=== PATIENT | female | born 1945 ===

== ENCOUNTER 2024-05-02 12:01 | Emergency (ER) | payer MEDICARE, SELFPAY ==
[2024-05-02 12:05] VITALS: BP 170/87
[2024-05-02 13:15] LABS: Urine Albumin 1+ (Neg - Trace); Urine Bilirubin Negative (Negative); Urine Character Very Cloudy (Clear); Urine Color Yellow; Urine Glucose Negative (Negative); Urine Ketone Negative (Negative); Urine Leukocyte 2+ (Negative); Urine Nitrite Negative (Negative); Urine Occult Blood 4+ (Negative); Urine Specific Gravity 1.015 (<1.030); Urine Urobilinogen Negative (Neg - 1+)
[2024-05-02 14:00] VITALS: BP 159/75
[2024-05-02 14:07] LABS: Urine Bacteria Many (Negative); Urine White Cell 50-60 /HPF (0-5)
--- NOTE | 2024-05-02 16:21 | ED.GENMED ---
Addendum entered and electronically signed by Arun Adrian DO 05/02/24 16:27:
Please disregard this note. This note is not correct and involves information from a different patient. Note which will be correct.
Original Note:
History of Present Illness
General
Chief Complaint: Urinary Symptoms
Source: patient and family
Time Seen by Provider: 05/02/24 13:08
History of Present Illness
History of Present Illness:
79-year-old female sent to the emergency room from [facility] for evaluation of hematuria. Patient is not incontinent of urine but evidently staff noticed bloody urine when they changed her. Patient offers no complaints. She has no abdominal
pain, fever, chills. She endorses having urinary tract infections in the past. Patient was recently hospitalized recalls for aspiration pneumonia. She completed a course of Augmentin.
Phy Exam
Physical Exam
Physical Exam:
General: Awake, Alert, Oriented X3. Cachectic appearing
Vitals: unremarkable
Head: Atraumatic
Eyes: Pupils equal, EOMI
Throat: Airway intact, no exudates
Neck: Trachea midline
Lungs: Clear and equal b/l
Heart: Regular rate, no murmurs
Abd: Soft, Nontender, No pulsatile mass
Back: No CVA tenderness to percussion
Neuro: Grossly nonfocal, resting tremor
Skin: Warm, dry, no rash
Extremities: pulses equal b/l, no edema
Course
Orders/Labs/Results
Orders:
Orders
05/02/24 13:04
Urinalysis Reflex To Culture Urgent
Date Specimen was Collected: 05/02/24
Time Specimen was Collected: 13:03
Urine Microscopic Reflex Cult Urgent
Urine Culture Urgent
SAPPHIRE Source: U
Specimen Description:
Date Specimen was Collected: 05/02/24
Time Specimen was Collected: 13:03
Abnormal Lab Results
07/20/24
13:04
Ur Occult Blood Reflex 4+ A
(Negative)
Leukocyte Esterase Rfl 2+ A
(Negative)
Urine RBC 7-10 A /HPF
(0-2)
Urine WBC (Reflex) 50-60 A /HPF
(0-5)
Urine Bacteria (Reflex) Many A
(Negative)
Urine Albumin (Reflex) 1+ A
(Neg - Trace)
Vital Signs
Initial and Last Documented VS:
Initial Vital Signs
Temp Pulse Resp BP Pulse Ox
98.1 F 60 18 170/87 98
05/02/24 12:05 05/02/24 12:05 05/02/24 12:05 05/02/24 12:05 05/02/24 12:05
Last Documented Vital Signs
Temp Pulse Resp BP Pulse Ox
98.1 F 65 18 159/75 95
05/02/24 12:05 05/02/24 14:00 05/02/24 14:00 05/02/24 14:00 05/02/24 14:00
MDM/Problems Addressed
Differential Diagnosis Includes:
UTI, bladder mass, kidney stone
MDM/Problems Addressed:
Patient does not have any flank pain to suggest kidney stone. Urinalysis suspicious for UTI given this presentation. Will cover with fosfomycin. Patient stable for discharge back to her facility.
*Pulse Oximetry
Patient hypoxic: no
*Critical Care Note
Total Time (30-74mins, 75-104mins- exclusive of procedures): Not Applicable
ED Attending Note
-
Portions of this chart may have been created with voice recognition software.� Occasional wrong word or��sound alike� substitutions may have occurred due to the inherent limitations of voice recognition software.
Discharge Plan
Departure
Patient Disposition: Home (Routine Discharge)
Date of Disposition: 05/02/24
Time of Disposition: 14:02
Patient with high blood pressure during this ER visit?: Yes
Discharge Problem:
Urinary tract infection
Instructions: Urinary Tract Infection, Adult (DC)
Prescriptions:
New
cefdinir 300 mg capsule
300 mg PO BID Qty: 14 0RF
Referrals:
Boone Marinelli MD [Active] -
Activity Restrictions/Additional Instructions:
Take antibiotics as prescribed.
Please follow-up with your family doctor and urologist. Return to the ER with any worsening symptoms or fevers.
Interventions
Interventions:
*Risk Screen - Suicide Last Done: 05/02/24 12:05
*General Assessment Last Done: 05/02/24 12:05
*Neglect/Abuse Screening Last Done: 05/02/24 12:05
ED- Fall Risk Assessment Last Done: 05/02/24 14:32
*ED COVID-19 Vaccine History Last Done: 05/02/24 14:35
*Nursing Disposition Last Done: 05/02/24 14:34
ED-Female Genitourinary Assessment Last Done: 05/02/24 14:32
Discharge Date and Time
Discharge Date/Time: 05/02/24 14:35
Print Language: HEBREW
--- NOTE | 2024-05-02 16:27 | ED.GENMED ---
History of Present Illness
General
Chief Complaint: Urinary Symptoms
Source: patient
Time Seen by Provider: 05/02/24 13:08
History of Present Illness
History of Present Illness:
Patient presents complaining of dysuria, frequency for the past week. No fever or chills. No flank pain.
Phy Exam
Physical Exam
Physical Exam:
General: Awake, Alert, Oriented X3. No acute distress.
Vitals: unremarkable
Head: Atraumatic
Eyes: Pupils equal, EOMI
Throat: Airway intact, no exudates
Neck: Trachea midline
Lungs: Clear and equal b/l
Heart: Regular rate, no murmurs
Back: No CVA tenderness to percussion
Neuro: Nonfocal
Skin: Warm, dry, no rash
Extremities: pulses equal b/l, no edema
Course
Orders/Labs/Results
Orders:
Orders
05/02/24 13:04
Urinalysis Reflex To Culture Urgent
Date Specimen was Collected: 05/02/24
Time Specimen was Collected: 13:03
Urine Microscopic Reflex Cult Urgent
Urine Culture Urgent
[facility] Source: U
Specimen Description:
Date Specimen was Collected: 05/02/24
Time Specimen was Collected: 13:03
Abnormal Lab Results
05/02/24
13:04
Ur Occult Blood Reflex 4+ A
(Negative)
Leukocyte Esterase Rfl 2+ A
(Negative)
Urine RBC 7-10 A /HPF
(0-2)
Urine WBC (Reflex) 50-60 A /HPF
(0-5)
Urine Bacteria (Reflex) Many A
(Negative)
Urine Albumin (Reflex) 1+ A
(Neg - Trace)
Vital Signs
Initial and Last Documented VS:
Initial Vital Signs
Temp Pulse Resp BP Pulse Ox
98.1 F 60 18 170/87 98
05/02/24 12:05 05/02/24 12:05 05/02/24 12:05 05/02/24 12:05 05/02/24 12:05
Last Documented Vital Signs
Temp Pulse Resp BP Pulse Ox
98.1 F 65 18 159/75 95
05/02/24 12:05 05/02/24 14:00 05/02/24 14:00 05/02/24 14:00 05/02/24 14:00
*Critical Care Note
Total Time (30-74mins, 75-104mins- exclusive of procedures): Not Applicable
ED Attending Note
-
Portions of this chart may have been created with voice recognition software.� Occasional wrong word or��sound alike� substitutions may have occurred due to the inherent limitations of voice recognition software.
Discharge Plan
Departure
Patient Disposition: Home (Routine Discharge)
Date of Disposition: 05/02/24
Time of Disposition: 14:02
Patient with high blood pressure during this ER visit?: Yes
Discharge Problem:
Urinary tract infection
Instructions: Urinary Tract Infection, Adult (DC)
Prescriptions:
New
cefdinir 300 mg capsule
300 mg PO BID Qty: 14 0RF
Referrals:
Boone Marinelli MD [Active] -
Activity Restrictions/Additional Instructions:
Take antibiotics as prescribed.
Please follow-up with your family doctor and urologist. Return to the ER with any worsening symptoms or fevers.
Interventions
Interventions:
*Risk Screen - Suicide Last Done: 05/02/24 12:05
*General Assessment Last Done: 05/02/24 12:05
*Neglect/Abuse Screening Last Done: 05/02/24 12:05
ED- Fall Risk Assessment Last Done: 05/02/24 14:32
*ED COVID-19 Vaccine History Last Done: 05/02/24 14:35
*Nursing Disposition Last Done: 05/02/24 14:34
ED-Female Genitourinary Assessment Last Done: 05/02/24 14:32
Discharge Date and Time
Discharge Date/Time: 05/02/24 14:35
Print Language: NEPALI
--- NOTE | 2024-05-02 18:24 | ED.GENMED ---
History of Present Illness
General
Chief Complaint: Urinary Symptoms
Source: patient and family
Time Seen by Provider: 05/02/24 13:08
History of Present Illness
History of Present Illness:
79yoF with a history of frequent UTIs and urinary incontinence presenting with her son for evaluation of a possible UTI. Patient reports urinary urgency, frequency, and dysuria over the past week. Symptoms feel identical to her prior UTIs. She is
typically treated by urgent care for her UTIs and was last on Macrobid about 3 to 4 months ago. The triage note documents weakness which patient denies. She states she is otherwise feeling well and denies any fevers, chills, vomiting, abdominal
pain, flank pain.
Phy Exam
General Physical Exam
General Presentation: well appearing and no apparent distress
General age: appears stated age
General Skin: warm and dry
General Habitus: elderly
Cardiovascular Exam
Cardiovascular Exam: regular rate/rhythm
Pulmonary Exam
Pulmonary Exam: no respiratory distress
Gastrointestinal Exam
Gastrointestinal Exam: non tender, soft, non distended and no cva tenderness
[place] Coma Scale
Eye Opening: Spontaneous
Verbal Response: Oriented
Motor Response: Obeys Commands
GCS Total Score: 15
Skin Exam
Skin Exam: normal color and warm/dry
Psychiatric Exam
Psychiatric Exam: normal mood/affect
Course
Orders/Labs/Results
Orders:
Orders
05/02/24 13:04
Urinalysis Reflex To Culture Urgent
Date Specimen was Collected: 05/02/24
Time Specimen was Collected: 13:03
Urine Microscopic Reflex Cult Urgent
Urine Culture Urgent
[facility] Source: U
Specimen Description:
Date Specimen was Collected: 05/02/24
Time Specimen was Collected: 13:03
Abnormal Lab Results
05/02/24
13:04
Ur Occult Blood Reflex 4+ A
(Negative)
Leukocyte Esterase Rfl 2+ A
(Negative)
Urine RBC 7-10 A /HPF
(0-2)
Urine WBC (Reflex) 50-60 A /HPF
(0-5)
Urine Bacteria (Reflex) Many A
(Negative)
Urine Albumin (Reflex) 1+ A
(Neg - Trace)
Vital Signs
Initial and Last Documented VS:
Initial Vital Signs
Temp Pulse Resp BP Pulse Ox
98.1 F 60 18 170/87 98
05/02/24 12:05 05/02/24 12:05 05/02/24 12:05 05/02/24 12:05 05/02/24 12:05
Last Documented Vital Signs
Temp Pulse Resp BP Pulse Ox
98.1 F 65 18 159/75 95
05/02/24 12:05 05/02/24 14:00 05/02/24 14:00 05/02/24 14:00 05/02/24 14:00
MDM/Problems Addressed
Differential Diagnosis Includes:
79yoF here with UTI symptoms x 1 week. History of frequent UTIs. No fevers or chills. No vomiting or flank pain. Patient is hypertensive with otherwise normal vital signs. She is well-appearing in no acute distress. No abdominal or CVA tenderness
on exam. Differential diagnosis includes but is not limited to: UTI, pyelonephritis, atrophic vaginitis
UA obtained which shows 50-60 WBC and many bacteria consistent with a UTI. No indication for further workup. She was started on a course of cefdinir. Advised follow-up with her urologist and PCP. ED return precautions discussed including fevers.
She expressed understanding and is agreeable to plan. Patient discharged in stable condition.
*Critical Care Note
Total Time (30-74mins, 75-104mins- exclusive of procedures): Not Applicable
ED Attending Note
-
Portions of this chart may have been created with voice recognition software.� Occasional wrong word or��sound alike� substitutions may have occurred due to the inherent limitations of voice recognition software.
Discharge Plan
Departure
Patient Disposition: Home (Routine Discharge)
Date of Disposition: 05/02/24
Time of Disposition: 14:02
Patient with high blood pressure during this ER visit?: Yes
Discharge Problem:
Urinary tract infection
Instructions: Urinary Tract Infection, Adult (DC)
Prescriptions:
New
cefdinir 300 mg capsule
300 mg PO BID Qty: 14 0RF
Referrals:
Boone Marinelli MD [Active] -
Activity Restrictions/Additional Instructions:
Take antibiotics as prescribed.
Please follow-up with your family doctor and urologist. Return to the ER with any worsening symptoms or fevers.
Interventions
Interventions:
*Risk Screen - Suicide Last Done: 05/02/24 12:05
*General Assessment Last Done: 05/02/24 12:05
*Neglect/Abuse Screening Last Done: 05/02/24 12:05
ED- Fall Risk Assessment Last Done: 05/02/24 14:32
*ED COVID-19 Vaccine History Last Done: 05/02/24 14:35
*Nursing Disposition Last Done: 05/02/24 14:34
ED-Female Genitourinary Assessment Last Done: 05/02/24 14:32
Discharge Date and Time
Discharge Date/Time: 05/02/24 14:35
Print Language: FRENCH
== END 2024-05-02 14:35 | disposition home or self-care (01) ==
LOC: EMR 12:01
PROVIDERS: Emergency Medicine; EMERGENCY PHYSICIAN Emergency Medicine; FAMILY PHYSICIAN Family Medicine
DX: N39.0 Urinary tract infection, site not specified (principal); Z87.440 Personal history of urinary (tract) infections
CPT/HCPCS: 99282; 81003; 81015; 87077; 87086; 87186

== ENCOUNTER 2024-06-20 16:25 | Emergency (ER) | payer MEDICARE, SELFPAY ==
[2024-06-20 16:29] VITALS: BP 192/96
[2024-06-20 17:06] VITALS: BP 179/72
[2024-06-20 17:13] VITALS: BMI 29.5
--- NOTE | 2024-06-20 17:14 | ED.GENMED ---
History of Present Illness
General
Chief Complaint: Skin Problem
Time Seen by Provider: 06/20/24 17:04
History of Present Illness
History of Present Illness:
HPI: Lives alone, came here by private vehicle as patient care associate noted that legs look more flesh colored / brown as opposed to usual reddish/purple. patient transporter spoke to son and told him that she seemed more confused. The son and the patient currently
denies any confusion. Had UTI here in April and again more recently. Usually incontinent. Denies urinary symptoms.
EXAM:
GENERAL: Well appearing in no distress
HEENT: Moist oral mucosa
CARDIOVASCULAR: 2 out of 6 systolic murmur in the right upper sternal border, normal heart rate, regular rhythm, No chest wall tenderness
PULMONARY: No respiratory distress, breath sounds are clear and equal
ABDOMEN: Soft with no peritoneal signs, no tenderness
NEUROLOGIC: Excellent strength all extremities, no coordination deficits, she is answering questions appropriately
PSYCHIATRIC: Appropriate mental status, normal insight and judgement
EXTREMITIES: Nontender, no edema, moves all extremities equally
SKIN: There is some very faint pink erythema noted to the distal lower extremities
TIME OF INITIAL ENCOUNTER: 5:30 PM
NUMBER AND COMPLEXITY OF PROBLEMS ADDRESSED AT THE ENCOUNTER
� Chronic conditions affecting care: Frequent UTIs, hypothyroidism
� Acute Exacerbation and/or Progression of Chronic Illness: This is an acute problem
� Differential Diagnosis includes: UTI, electrolyte normality, cellulitis
AMOUNT AND/OR COMPLEXITY OF DATA TO BE REVIEWED AND ANALYZED
� I performed an independent evaluation of and my interpretation is:
EKG:
CT:
X-rays:
Laboratory Studies: Chemistries unremarkable, urinalysis negative for infection, mild pancytopenia noted with no old to compare however platelets are only 59, TSH normal
Other:
� Review of other/old records: I reviewed records, the patient had a Klebsiella UTI which was pansensitive with exception to ampicillin
� Clinical information was obtained by an independent historian: I spoke to the son at bedside
� Prescriptions/Medications Considered but not given:
� Further testing considered but not performed:
RISK OF COMPLICATIONS AND/OR MORBIDITY OR MORTALITY OF PATIENT MANAGEMENT
� Social determinants of health affecting care: Lives at home and has caregivers
� Discussion with other providers:
� Escalation of care including admission/observation vs risk of discharge considered: There is no sign of UTI based on urinalysis chemistries are unremarkable. I notified the patient and the son about the pancytopenia and need
for PMD follow-up. She is very well-appearing on reassess 1:20 PM.
Phy Exam
Physical Exam
Physical Exam:
See HPI
Course
Orders/Labs/Results
Orders:
Orders
06/20/24 17:31
Complete Blood Count/With Diff Urgent
Comprehensive Metabolic Panel Urgent
Magnesium Urgent
TSH Reflex To Free T4 Urgent
06/20/24 17:37
Urinalysis Reflex To Culture Urgent
Date Specimen was Collected: 06/20/24
Time Specimen was Collected: 17:36
Abnormal Lab Results
06/20/24
17:31
WBC 4.1 L 10^3/uL
(4.8-10.8)
RBC 3.96 L 10^6/uL
(4.20-5.40)
Hgb 11.8 L g/dL
(12.0-16.0)
Hct 35.6 L %
(37.0-47.0)
Plt Count 59 L 10^3/uL
(130-400)
MPV 12.8 H fL
(7.4-10.4)
Absolute Lymphs (auto) 1.0 L 10^3/uL
(1.2-3.4)
Monocytes % 12.5 H %
(1.7-9.3)
Total Protein 6.2 L g/dl
(6.3-8.2)
06/20/24 17:31
06/20/24 17:31
Vital Signs
Initial and Last Documented VS:
Initial Vital Signs
Temp Pulse Resp BP Pulse Ox
97.9 F 60 20 192/96 97
06/20/24 16:29 06/20/24 16:29 06/20/24 16:29 06/20/24 16:29 06/20/24 16:29
Last Documented Vital Signs
Temp Pulse Resp BP Pulse Ox
97.9 F 55 16 168/77 98
06/20/24 16:29 06/20/24 19:00 06/20/24 19:00 06/20/24 19:00 06/20/24 19:00
*Critical Care Note
Total Time (30-74mins, 75-104mins- exclusive of procedures): Not Applicable
ED Attending Note
-
Portions of this chart may have been created with voice recognition software.� Occasional wrong word or��sound alike� substitutions may have occurred due to the inherent limitations of voice recognition software.
Discharge Plan
Departure
Patient Disposition: Home (Routine Discharge)
Date of Disposition: 06/20/24
Time of Disposition: 19:17
Patient with high blood pressure during this ER visit?: Yes
Discharge Problem:
Encounter for medical assessment
Prescriptions:
No Action
fluoxetine 20 mg Tablet
20 mg PO DAILY
Premarin 0.625 mg/gram Cream
0.625 mg VAGINAL .TWICEWEEKLY
levothyroxine [Synthroid] 150 mcg Tablet
150 mcg PO DAILY
fesoterodine 4 mg Tablet Extended Release 24 Hr
4 mg PO HS
Referrals:
Dontae Boothe IV, MD [Family Provider] -
Activity Restrictions/Additional Instructions:
Electrolytes, kidney, liver, and thyroid function are all normal. There is no sign of urinary tract infection. Your CBC shows mild pancytopenia�your white count is 4.1, hemoglobin is 11.8, and platelets are 59. I recommend that you follow-up your
primary care doctor and obtain old records for further evaluation. I have no old records available for review at [facility]. This does not mean it is anything serious but I would follow-up with the primary care doctor.
Interventions
Interventions:
*Risk Screen - Suicide Last Done: 06/20/24 16:29
*General Assessment Last Done: 06/20/24 16:29
*Neglect/Abuse Screening Last Done: 06/20/24 16:29
ED- Fall Risk Assessment Last Done: 06/20/24 17:15
*ED COVID-19 Vaccine History Last Done: 06/20/24 17:15
ED-Skin Assessment Last Done: 06/20/24 19:14
Discharge Date and Time
Print Language: SAMI
[2024-06-20 17:56] LABS: Urine Albumin Negative (Neg - Trace); Urine Bilirubin Negative (Negative); Urine Character Clear (Clear); Urine Color Yellow; Urine Glucose Negative (Negative); Urine Ketone Negative (Negative); Urine Leukocyte Negative (Negative); Urine Nitrite Negative (Negative); Urine Occult Blood Negative (Negative); Urine Urobilinogen Negative (Neg - 1+)
[2024-06-20 18:00] VITALS: BP 166/68
[2024-06-20 18:01] LABS: ALT (SGPT) 15 U/L (0-35); AST (SGOT) 25 U/L (14-36); Albumin 3.8 g/dl (3.5-5.0); Alkaline Phosphatase 80 U/L (38-126); Blood Urea Nitrogen 16 mg/dl (7-17); Calcium 9.7 mg/dl (8.4-10.2); Carbon Dioxide 27 mmol/L (22-30); Chloride 105 mmol/L (98-107); Estimated Creatinine Clearance 80 ml/min; Glucose 86 mg/dl (70-99); Magnesium 1.9 mg/dl (1.6-2.3); Potassium 4.4 mmol/L (3.5-5.1); Sodium 142 mmol/L (135-145); Total Bilirubin 0.4 mg/dl (0.2-1.3); Total Protein 6.2 g/dl (6.3-8.2); eGFR > 60.00
[2024-06-20 18:11] LABS: % Basophils 0.5 % (0-2); % Eosinophils 3.7 % (0-6); % Immature Granulocytes 0.2 % (0-0.5); % Lymphocytes 25.4 % (20.5-51.1); % Monocytes 12.5 % (1.7-9.3); % Neutrophils 57.7 % (42.2-75.2); Absolute Eosinophils 0.2 10^3/uL (0-0.7); Absolute Monocytes 0.5 10^3/uL (0.1-0.6); Absolute Neutrophils 2.4 10^3/uL (1.4-6.5); Hematocrit 35.6 % (37.0-47.0); Hemoglobin 11.8 g/dL (12.0-16.0); Mean Corp Hgb Conc. 33.1 g/dL (33.0-37.0); Mean Corpuscular Hgb 29.8 pg (27.0-31.0); Mean Corpuscular Volume 89.9 fL (81.0-99.0); Mean Platelet Volume 12.8 fL (7.4-10.4); Nucleated Red Blood Cells % 0 %; Platelet Count 59 10^3/uL (130-400); Red Blood Cell Count 3.96 10^6/uL (4.20-5.40); Red Cell Dist. Width 13.1 % (11.5-14.5); White Blood Cell Count 4.1 10^3/uL (4.8-10.8)
[2024-06-20 18:30] LABS: TSH Reflex To Free T4 0.61 uIU/ml (0.47-4.68)
[2024-06-20 19:00] VITALS: BP 168/77
== END 2024-06-20 19:45 | disposition home or self-care (01) ==
LOC: EMR 16:25
PROVIDERS: EMERGENCY PHYSICIAN Emergency Medicine; FAMILY PHYSICIAN Family Medicine
DX: Z02.79 Encounter for issue of other medical certificate (principal); R23.8 Other skin changes; R41.0 Disorientation, unspecified; R32 Unspecified urinary incontinence; D61.818 Other pancytopenia; R01.1 Cardiac murmur, unspecified; E03.9 Hypothyroidism, unspecified; Z87.440 Personal history of urinary (tract) infections
CPT/HCPCS: 99283; 80053; 81003; 83735; 84443; 85025